=== PATIENT | male | born 1990 | race Caucasian/White ===

== ENCOUNTER 2020-10-13 08:55 | Emergency (ER) | payer OTHER ==
[~2020-10-13] VITALS: Ht 182.9 cm; Wt 79.5 kg
[~2020-10-13 08:55] MED LIST: RISP2TAB45 PO
[2020-10-13] MEDS ORDERED: AMMONIA 1 EA AMP IH ONE (09:15)
[2020-10-13] MEDS: PERTUSS(ACELL),DIPH,TET VAC/PF 0.5 ML SYRINGE IM ONE ×2 (09:54→10:17)
[2020-10-13] MEDS ORDERED: BACITRACIN 0.9 GM PACKET OINTMENT TP ONE (10:15)
[2020-10-13 10:22] VITALS: BP 120/80
[2020-10-13 10:36] LABS: AMPHET/METH SCREEN,URINE POSITIVE (NEGATIVE); BARBITURATE SCREEN, URINE NEGATIVE (NEGATIVE); BENZODIAZEPINES SCREEN,URINE POSITIVE (NEGATIVE); CANNABINOID SCREEN,URINE NEGATIVE (NEGATIVE); COCAINE SCREEN,URINE NEGATIVE (NEGATIVE); METHADONE SCREEN, URINE NEGATIVE (NEGATIVE); OPIATE SCREEN,URINE NEGATIVE (NEGATIVE)
[2020-10-13 10:39] LABS: PHENCYCLIDINE SCREEN,URINE NEGATIVE (NEGATIVE)
== END 2020-10-13 10:32 | disposition home or self-care (01) ==
LOC: EMS 09:01
DX: R44.0 Auditory hallucinations (principal); F15.90 Other stimulant use, unspecified, uncomplicated; F17.210 Nicotine dependence, cigarettes, uncomplicated; Z79.899 Other long term (current) drug therapy
CPT/HCPCS: 90715; 99284